=== PATIENT | male | born 1990 | race African-American/Black ===

== ENCOUNTER 2018-07-01 11:06 | Emergency (ER) | payer OTHER ==
[2018-07-01 11:29] VITALS: BP 133/73
--- NOTE | 2018-07-01 12:49 | ED Physician Documentation ---
PD HPI SKIN - Stated complaint Stated Complaint: RASH ALL OVER - Chief complaint Chief Complaint: Wound - History obtained from History obtained from: Patient - History of Present Illness Timing - onset: How many weeks ago (2) Timing - duration: Weeks (2) Timing - details: Still present Location: RUE, LUE, RLE, LLE Quality / character: Itchy Contributing factors: Other (Exposed to other family members who have been diagnosed with scabies.) Similar symptoms before: Has not had sx before - Additional information Additional information: The patient is a 28-year-old male who presents with rash and itching on both hands, and less so on his legs. His symptoms have been progressing over the past 2 weeks. His daughters were diagnosed with scabies, and have been treated. He denies history of similar symptoms in the past. Review of Systems Constitutional: denies: Fever Eyes: denies: Irritation Throat: denies: Sore throat Respiratory: denies: Cough Skin: reports: Rash Neurologic: denies: Headache PD PAST MEDICAL HISTORY - Past Medical History Past Medical History: No Endocrine/Autoimmune: None - Past Surgical History Past Surgical History: No - Present Medications Home Medications: Ambulatory Orders Medication Instructions Recorded Confirmed Permethrin 5% Cream 60 applic TOP ONCE #2 tube 07/01/18 - Allergies Allergies/Adverse Reactions: Allergies Allergy/AdvReac Type Severity Reaction Status Date / Time No Known Drug Allergies Allergy Verified 07/01/18 11:29 - Social History Does the pt smoke?: No Smoking Status: Never smoker Does the pt drink ETOH?: Yes Does the pt have substance abuse?: No - Immunizations Immunizations are current?: Yes - POLST Patient has POLST: No PD ED PE NORMAL - Vitals Vital signs reviewed: Yes (normal) - General General: Alert and oriented X 3, Well developed/nourished - HEENT HEENT: Atraumatic - Respiratory Respiratory: No respiratory distress - Derm Derm: Other (There are burrows in the webspaces of his fingers on both hands, consistent with scabies.) - Extremities Extremities: No edema - Neuro Neuro: Alert and oriented X 3, No motor deficit, Normal speech Results - Vitals Vitals: Oxygen O2 Source Room air PD MEDICAL DECISION MAKING - ED course Complexity details: considered differential, d/w patient ED course: The patient's presentation is most consistent with scabies, based on history and examination. I discussed with him and his scabies treatment, outpatient follow- up, as well as potentially worrisome signs or symptoms that should prompt reevaluation in the emergency department. He is being discharged with a prescription for 5% permethrin cream. Departure - Departure Disposition: 01 Home, Self Care Clinical Impression: Scabies Condition: Stable Instructions: ED Scabies Prescriptions: Permethrin 5% Cream 60 applic TOP ONCE #2 tube Comments: Apply permethrin cream as per package instructions. 1 week after the first application, you should repeat with a second application. Wash your clothing and bedding. Follow-up with your primary physician upon returning to [facility]. Return to the emergency department if you develop increasing rash, or otherwise worsening symptoms. Discharge Date/Time: 07/01/18 12:56
== END 2018-07-01 12:56 | disposition home or self-care (01) ==
LOC: ED 11:06
DX: B86 Scabies (principal)
CPT/HCPCS: 99283